=== PATIENT | female | born 1985 | race Caucasian/White ===

== ENCOUNTER 2019-07-16 11:32 | Emergency (ER) | payer MEDICAID, SELFPAY ==
[2019-07-16 11:40] VITALS: BP 174/98; PULSE 75; RESP 18; TEMP 36.8; O2SAT 100; BMI 53.1
--- NOTE | 2019-07-16 11:58 | ED_ITS ---
Entered by Ally Lopez, acting as scribe for Emmanuel Degroot DO HPI - Female Genitourinary General: Chief complaint: Vaginal Bleeding Stated complaint: problem Time Seen by Provider: 07/16/19 11:59 Source: patient and family Mode of arrival: ambulatory Limitations: no limitations History of Present Illness: HPI Narrative: 33 yo female presents with vaginal bleeding. pt states she started spotting the last few days but worsened today. pt states this is her 5th pregancy. pt reports she had several positive test at home including one that was just 3 days ago she reports it as having been sharply positive. Patient is L3 (this would include the current reported . MD elicited complaint: vaginal bleeding Location of symptoms: vaginal Severity: mild Quality of pain: cramping Consistency: progressively worsening Vaginal bleeding: moderate Exacerbating factors: none Relieving factors: none Associated symptoms: Reports no associated symptoms and abdominal pain (Left abdomen); Deny headache(s) or syncope Treatment prior to arrival: none Patient : Yes Possible : at home test positive Date of Last Menstrual Period: 06/06/19 Review of Systems General: Reports: 10 or more systems reviewed and unremarkable except in HPI and below Const: Denies: fever, chills, body aches, fatigue, malaise or night sweats Eyes: Denies: change in vision or blurry vision ENMT: Denies: throat pain, oral sores/lesions, dental pain, nasal discharge or nasal congestion Card: Denies: chest pain, palpitations, irregular heart rhythm, edema, syncope, shortness of breath on exertion, shortness of breath when lying down or leg pain with exertion Resp: Denies: shortness of breath, productive cough, non-productive cough or wheezing GI: Reports: abdominal pain (Left abdomen) : Reports: vaginal bleeding Musc: Denies: neck pain, back pain, extremity pain, extremity swelling, joint pain or joint swelling Skin/Breast: Denies: rash, itching or redness Neuro: Denies: headache, numbness in extremities, weakness in extremities, changes in sensation, lack of coordination, difficulty walking, frequent falls, dizziness, vertigo or confusion Psych: Denies: anxiety, depression, loss of interest, visual hallucinations, auditory hallucinations, suicidal ideation or homicidal ideation Endo: Denies: excessive urination, excessive thirst, tired all the time or cold intolerance Bello/Lymph: Denies: easy bruising, easy bleeding, petechiae, enlarged lymph nodes or tender lymph nodes PFSH ED PFSH: Social History Smoking and tobacco status: current every day smoker Female Reproductive History: Date of last menstrual period: 06/06/19 Physical Exam Const: COMMON NORMALS: average body habitus, oriented x3 and alert GENERAL APPEARANCE: cooperative, comfortable, well kempt and well developed NUTRITIONAL APPEARANCE: obese ORIENTATION/CONSCIOUSNESS: Yes awake, Yes oriented to person and Yes oriented to place HENMT: COMMON NORMALS: normocephalic, head/scalp atraumatic, external ears normal, EAC's normal, TM's normal bilaterally, external nose normal, moist oral mucous membranes and oropharynx normal HEAD & SCALP: normocephalic and atraumatic NOSE: external nose normal EXTERNAL EAR: Yes external ears normal EXTERNAL AUDITORY CANAL: EAC's normal TYMPANIC MEMBRANE: TM's normal bilaterally MOUTH: oral and palatal mucosa normal, lip normal and tongue normal THROAT: posterior oropharynx normal and tonsils normal Eye: COMMON NORMALS: PERRL, EOMs intact bilaterally, conjunctivae normal and no scleral icterus CONJUNCTIVA: Yes conjunctivae normal PUPIL: Yes PERRL Neck/C-Spine: COMMON NORMALS: full ROM, no lymphadenopathy, supple, no meningeal signs and thyroid normal THYROID: thyroid normal and asymmetrical Lymph: LYMPHATIC: no lymphadenopathy noted Resp: COMMON NORMALS: normal respiratory effort, no retractions, no use of accessory muscles and clear to auscultation bilaterally AUSCULTATION: clear to auscultation bilaterally Cardio: COMMON NORMALS: regular rate and regular rhythm RATE: regular rate RHYTHM: regular rhythm HEART SOUNDS: no murmurs GI: COMMON NORMALS: soft to palpation and no hepatosplenomegaly AUSCULTATION: Yes normoactive bowel sounds PALPATION: Yes soft, No tender, No guarding and Yes no hepatosplenomegaly : COMMON NORMALS: Yes no CVA tenderness BLADDER/KIDNEY EXAM: Yes no CVA tenderness OTHER: Patient placed in dorsolithotomy position speculum introduced cervix visualized small amount of blood from the cervical loss no evidence of any products of conception cultures done. Due to body habitus unable to perform bimanual exam ultrasound done see report in chart. Back/Pelvis: COMMON NORMALS: no CVA tenderness LUMBAR SPINE/LOWER BACK: Yes normal to inspection Extremity: COMMON NORMALS: no clubbing, cyanosis or edema, no calf tenderness and no pedal edema Neuro: COMMON NORMALS: oriented x3 SENSORIUM/ORIENTATION: Yes alert, Yes oriented to person and Yes oriented to place MENINGEAL SIGNS: Yes no meningeal signs Psych: APPEARANCE: Yes well kempt Skin: COMMON NORMALS: no rashes or lesions noted and skin turgor normal GENERAL SKIN EXAM: no rashes or lesions noted and turgor normal Course ED course: Serum quantitative beta-hCG is 0. There is no identifiable on ultrasound discussed this with the patient. Follow-up with primary care doctor at this point suspect she just had a blighted ovum or possibly a anovulatory cycle. Vital Signs: Vital signs: Vital Signs Temperature 98.3 F 07/16/19 11:40 Pulse Rate 71 07/16/19 14:28 Respiratory Rate 16 07/16/19 14:28 Blood Pressure 153/104 07/16/19 14:28 Pulse Oximetry 97 07/16/19 14:28 MDM - Female Lab Data: Labs: Lab Results 07/16/19 07/16/19 07/16/19 Range/Units 12:05 12:37 12:37 WBC 6.0 (4.0-10.0) 10^3/ uL RBC 4.53 (4.1-5.3) 10^6/u L Hgb 13.5 (11.5-15.3) g/dL Hct 40.1 (37.0-47.0) % MCV 88.5 (81-99) fL MCH 29.8 (28.0-34.0) pg MCHC 33.7 (30.0-36.0) g/dL RDW 12.2 (12.1-15.1) % Plt Count 280 (130-400) 10^3/c mm MPV 11.0 H (7.4-10.4) fL Neut % (Auto) 55.5 % Lymph % (Auto) 32.8 % [place] % (Auto) 5.9 % Eos % (Auto) 4.9 % Baso % (Auto) 0.7 % Neut # (Auto) 3.3 (1.8-7.7) 10^3/u L Lymph # (Auto) 2.0 (0.8-4.8) 10^3/u L [place] # (Auto) 0.4 (0.2-0.9) 10^3/u L Eos # (Auto) 0.3 (0.0-0.8) 10^3/u L Baso # (Auto) 0.0 (0.0-0.1) 10^3/u L Nucleated RBC % (a uto) 0 % Nucleated RBCs # 0.0 /100WBC Sodium 137 (136-145) mmol/L Potassium 4.1 (3.5-5.1) mmol/L Chloride 98 (98-107) mmol/L Carbon Dioxide 26 (22-29) mmol/L Anion Gap 17.1 (5-19) BUN 7 (6-20) mg/dL Creatinine 0.5 (0.5-0.9) mg/dL GFR Calculation 143.9 H (90-130) mL/min Glucose 153 H (65-115) mg/dL Calculated Osmolal ity 283 L (285-295) mOsm/k g Calcium 10.0 (8.5-10.5) mg/dL HCG, Qual Negative (Negative) Urine Color (Yellow) Urine Appearance (CLEAR) Urine pH (5-7) Ur Specific [place] y (1.005-1.030) Urine Protein (Negative) Urine Glucose (UA) (Normal) Urine Ketones (Negative) Urine Occult Blood (Negative) Urine Nitrate (Negative) Urine Bilirubin (NEGATIVE) Urine Urobilinogen (Negative) mg/dL Ur Leukocyte Patty ase (Negative) Urine RBC (0-2) /hpf Urine WBC (0-5) /hpf Ur Squamous Epith Cells (0-5) Urine Bacteria (NONE) Urine Mucus Blood Type 07/16/19 07/16/19 Range/Units 12:41 13:23 WBC (4.0-10.0) 10^3/ uL RBC (4.1-5.3) 10^6/u L Hgb (11.5-15.3) g/dL Hct (37.0-47.0) % MCV (81-99) fL MCH (28.0-34.0) pg MCHC (30.0-36.0) g/dL RDW (12.1-15.1) % Plt Count (130-400) 10^3/c mm MPV (7.4-10.4) fL Neut % (Auto) % Lymph % (Auto) % [place] % (Auto) % Eos % (Auto) % Baso % (Auto) % Neut # (Auto) (1.8-7.7) 10^3/u L Lymph # (Auto) (0.8-4.8) 10^3/u L [place] # (Auto) (0.2-0.9) 10^3/u L Eos # (Auto) (0.0-0.8) 10^3/u L Baso # (Auto) (0.0-0.1) 10^3/u L Nucleated RBC % (a uto) % Nucleated RBCs # /100WBC Sodium (136-145) mmol/L Potassium (3.5-5.1) mmol/L Chloride (98-107) mmol/L Carbon Dioxide (22-29) mmol/L Anion Gap (5-19) BUN (6-20) mg/dL Creatinine (0.5-0.9) mg/dL GFR Calculation (90-130) mL/min Glucose (65-115) mg/dL Calculated Osmolal ity (285-295) mOsm/k g Calcium (8.5-10.5) mg/dL HCG, Qual (Negative) Urine Color Yellow (Yellow) Urine Appearance Clear (CLEAR) Urine pH 6.5 (5-7) Ur Specific Gravit y 1.020 (1.005-1.030) Urine Protein Neg (Negative) Urine Glucose (UA) Norm (Normal) Urine Ketones Negative (Negative) Urine Occult Blood 2+ H (Negative) Urine Nitrate Negative (Negative) Urine Bilirubin Neg (NEGATIVE) Urine Urobilinogen Norm (Negative) mg/dL Ur Leukocyte Patty ase Negative (Negative) Urine RBC 0-4 H (0-2) /hpf Urine WBC Rare (0-5) /hpf Ur Squamous Epith Cells 5-10 H (0-5) Urine Bacteria Trace (NONE) Urine Mucus 1+ Blood Type O Positive Discharge Plan Discharge Patient Disposition: Home, Self-Care Clinical Impression: Menometrorrhagia Condition: Stable Prescriptions: No Action Tylenol 325 mg Tablet 650 mg PO PRN RF: 0 Discharge Diet: Usual diet Discharge Activity: Resume usual activity Activity Restrictions/Additional Instructions: Follow-up with your primary care doctor as needed Discharge Date/Time: 07/16/19 14:28 Coding Level of Care Code ED Print Developer for Chg Fwd Exam Comprehensive The documentation recorded by the John mendoza Bridget Annette, accurately reflects the service I personally performed and the decisions made by Zane paige Curtis L, DO Jul 16, 2019 11:32
--- NOTE | 2019-07-16 12:09 | PC.NURSE ---
Patient states she has been spotting, bright pink blood for the past few days. She has had a positive home test but has not seen an OB yet. She does not have any c/o cramping but states she does have some LLQ pain, intermittently, described as shooting pain. SPotting only occurs when wiping after urination, but has begun to occur everytime she goes now.
--- NOTE | 2019-07-16 12:21 | US_ITS ---
WS: [id number] ULTRASOUND TRANSABDOMINAL AND TRANSVAGINAL HISTORY: aginal bleeding : 5 PARA: 4 COMPARISON: None available. FINDINGS: Cervical length is cm; closed. Placenta grade 0, anterior cardiac tones 0 BPM. A markedly thickened endometrium is noted measures 1.6 cm. A definite gestational sac is not seen. A nabothian cyst in the cervix is noted Estimated gestational age 5 weeks gestation Estimated weight g. US/US OB >=14 wk fetus w transvag IMPRESSION: A definite intrauterine is not noted. A markedly thickened endometrium is seen. We recommend follow-up evaluation with scanning of one week of is mercer spected.
[2019-07-16 12:35] LABS: HCG Qualitative Urine. Negative (Negative)
[2019-07-16 12:51] LABS: Basophils % 0.7 %; Eosinophils # 0.3 10^3/uL (0.0-0.8); Eosinophils % 4.9 %; Hematocrit 40.1 % (37.0-47.0); Hemoglobin 13.5 g/dL (11.5-15.3); Lymphocytes % 32.8 %; Mean Corpuscular HGB Conc 33.7 g/dL (30.0-36.0); Mean Corpuscular Hemoglobin 29.8 pg (28.0-34.0); Mean Corpuscular Volume 88.5 fL (81-99); Monocytes # 0.4 10^3/uL (0.2-0.9); Monocytes % 5.9 %; Neutrophils # 3.3 10^3/uL (1.8-7.7); Neutrophils % 55.5 %; Nucleated Red Blood Cells % 0 %; Platelet Count 280 10^3/cmm (130-400); Red Blood Count 4.53 10^6/uL (4.1-5.3); Red Cell Distribution Width 12.2 % (12.1-15.1)
[2019-07-16 13:04] LABS: Anion Gap 17.1 (5-19); Blood Urea Nitrogen 7 mg/dL (6-20); Carbon Dioxide 26 mmol/L (22-29); Chloride 98 mmol/L (98-107); Glomerular Filtration Rate 143.9 mL/min (90-130); Glucose 153 mg/dL (65-115); Osmolality Calculated 283 mOsm/kg (285-295); Potassium 4.1 mmol/L (3.5-5.1); Sodium 137 mmol/L (136-145)
[2019-07-16 13:37] LABS: Add Urine Microscopic? YES; Bilirubin Urine Neg (NEGATIVE); Blood Urine 2+ (Negative); Glucose Urine UA Norm (Normal); Ketones Urine Negative (Negative); Leukocyte Esterase Urine Negative (Negative); Nitrate Urine Negative (Negative); Protein Urine Neg (Negative); Urine Appearance Clear (CLEAR); Urine Color Yellow (Yellow); Urobilinogen Urine Norm (Negative); pH Urine 6.5 (5-7)
[2019-07-16 13:42] LABS: Bacteria Urine TRACE; Mucus Urine 1+; RBC Urine 0-4 /hpf (0-2); WBC Urine RARE /hpf (0-5)
[2019-07-16 13:43] LABS: Add Urine Culture? No
[2019-07-16 13:55] VITALS: BP 153/87; PULSE 71; O2SAT 98
[2019-07-16 14:28] VITALS: BP 153/104; PULSE 71; RESP 16; O2SAT 97
== END 2019-07-16 14:28 | disposition home or self-care (01) ==
PROVIDERS: Emergency Provider Family Medicine
DX: N92.1 Excessive and frequent menstruation with irregular cycle (principal); F17.200 Nicotine dependence, unspecified, uncomplicated
CPT/HCPCS: 51701; 76805; 76817; 80048; 81001; 81025; 85025; 86900; 87210; 87491; 87591; 87661; 99283; A9270

== ENCOUNTER → 2019-12-06 13:40 | Outpatient (BNVA) | payer MEDICAID, SELFPAY | PROVIDERS: Visit Provider Nurse Practitioner Women's Health | DX: O20.9 Hemorrhage in early pregnancy, unspecified (principal); O26.891 Other specified pregnancy related conditions, first trimester; E06.3 Autoimmune thyroiditis; O99.331 Smoking (tobacco) complicating pregnancy, first trimester; F17.200 Nicotine dependence, unspecified, uncomplicated; Z3A.01 Less than 8 weeks gestation of pregnancy; Z86.32 Personal history of gestational diabetes; Z87.59 Personal history of other complications of pregnancy, childbirth and the puerperium | CPT/HCPCS: 81000; 84443; 84702 ==

== ENCOUNTER → 2019-12-08 15:40 | Outpatient (BNVA) | payer MEDICAID, SELFPAY | PROVIDERS: Visit Provider Obstetrics & Gynecology | DX: O34.219 Maternal care for unspecified type scar from previous cesarean delivery (principal); O34.81 Maternal care for other abnormalities of pelvic organs, first trimester; O26.891 Other specified pregnancy related conditions, first trimester; N83.201 Unspecified ovarian cyst, right side; N84.0 Polyp of corpus uteri; Z3A.01 Less than 8 weeks gestation of pregnancy | CPT/HCPCS: 76817 ==

== ENCOUNTER → 2020-01-13 13:51 | Outpatient (BNVA) | payer MEDICAID, SELFPAY | PROVIDERS: Visit Provider Obstetrics & Gynecology | DX: O99.281 Endocrine, nutritional and metabolic diseases complicating pregnancy, first trimester (principal); O99.331 Smoking (tobacco) complicating pregnancy, first trimester; E06.3 Autoimmune thyroiditis | CPT/HCPCS: 80053; 80307; 82950; 84315; 85027; 86592; 86762; 86803; 86850; 86900; 87340; 87491; 87591 ==

== ENCOUNTER → 2020-01-16 10:57 | Outpatient (BNVA) | payer MEDICAID, SELFPAY | PROVIDERS: Visit Provider Obstetrics & Gynecology | DX: Z34.91 Encounter for supervision of normal pregnancy, unspecified, first trimester (principal); Z3A.12 12 weeks gestation of pregnancy | CPT/HCPCS: 76801 ==

== ENCOUNTER → 2020-01-23 13:58 | Outpatient (BNVA) | payer MEDICAID, SELFPAY | PROVIDERS: Referring Provider Obstetrics & Gynecology; Visit Provider Internal Medicine | DX: O99.282 Endocrine, nutritional and metabolic diseases complicating pregnancy, second trimester (principal); E03.9 Hypothyroidism, unspecified; E04.1 Nontoxic single thyroid nodule; O99.212 Obesity complicating pregnancy, second trimester; E66.9 Obesity, unspecified; Z3A.13 13 weeks gestation of pregnancy | CPT/HCPCS: 99204 ==

== ENCOUNTER → 2020-02-10 08:32 | Outpatient (BNVA) | payer SELFPAY | PROVIDERS: Visit Provider Obstetrics & Gynecology | DX: O99.89 Other specified diseases and conditions complicating pregnancy, childbirth and the puerperium (principal); Z3A.00 Weeks of gestation of pregnancy not specified | CPT/HCPCS: 81000 ==

== ENCOUNTER → 2020-02-14 08:12 | Outpatient (BNVA) | payer MEDICAID, SELFPAY | PROVIDERS: Visit Provider Obstetrics & Gynecology | DX: R73.09 Other abnormal glucose (principal) | CPT/HCPCS: 82951; 82952 ==

== ENCOUNTER → 2020-02-17 08:23 | Outpatient (BNVA) | payer MEDICAID, SELFPAY | PROVIDERS: Visit Provider Obstetrics & Gynecology | DX: Z34.90 Encounter for supervision of normal pregnancy, unspecified, unspecified trimester (principal) | CPT/HCPCS: 81000 ==

== ENCOUNTER → 2020-02-23 12:54 | Outpatient (BNVA) | payer MEDICAID, SELFPAY | PROVIDERS: Visit Provider Nurse Practitioner Family | DX: Z11.59 Encounter for screening for other viral diseases (principal) | CPT/HCPCS: 87635 ==

== ENCOUNTER → 2020-03-08 10:20 | Outpatient (BNVA) | payer MEDICAID, SELFPAY | PROVIDERS: Visit Provider Obstetrics & Gynecology | DX: Z34.92 Encounter for supervision of normal pregnancy, unspecified, second trimester (principal); Z3A.20 20 weeks gestation of pregnancy | CPT/HCPCS: 76805 ==

== ENCOUNTER 2020-03-15 16:20 | Outpatient (CLI) | payer MEDICAID, SELFPAY ==
[2020-03-15 17:39] LABS: Thyroid Stimulating Hormone 7.92 uIU/mL (0.27-4.20)
[2020-03-16 07:48] LABS: T4 Total 13.1 mcg/dL (5.1-11.9)
== END 2020-03-15 16:21 | disposition home or self-care (01) ==
PROVIDERS: Visit Provider Internal Medicine
DX: O99.282 Endocrine, nutritional and metabolic diseases complicating pregnancy, second trimester (principal); E03.9 Hypothyroidism, unspecified
CPT/HCPCS: 36415; 84436; 84443

== ENCOUNTER → 2020-03-16 07:59 | Outpatient (BNVA) | payer MEDICAID, SELFPAY | PROVIDERS: Visit Provider Internal Medicine | DX: O99.282 Endocrine, nutritional and metabolic diseases complicating pregnancy, second trimester (principal); E03.9 Hypothyroidism, unspecified | CPT/HCPCS: 81000; 99213 ==

== ENCOUNTER → 2020-04-10 09:43 | Outpatient (BNVA) | payer MEDICAID, SELFPAY | PROVIDERS: Visit Provider Obstetrics & Gynecology | DX: O09.899 Supervision of other high risk pregnancies, unspecified trimester (principal); Z3A.00 Weeks of gestation of pregnancy not specified | CPT/HCPCS: 81000 ==

== ENCOUNTER → 2020-05-04 09:40 | Outpatient (BNVA) | payer MEDICAID, SELFPAY | PROVIDERS: Visit Provider Obstetrics & Gynecology | DX: O09.893 Supervision of other high risk pregnancies, third trimester (principal); O99.283 Endocrine, nutritional and metabolic diseases complicating pregnancy, third trimester; E03.9 Hypothyroidism, unspecified; E06.3 Autoimmune thyroiditis; O99.333 Smoking (tobacco) complicating pregnancy, third trimester; F17.210 Nicotine dependence, cigarettes, uncomplicated; O24.913 Unspecified diabetes mellitus in pregnancy, third trimester; Z3A.28 28 weeks gestation of pregnancy | CPT/HCPCS: 81000; 85027 ==

== ENCOUNTER → 2020-05-18 14:46 | Outpatient (BNVA) | payer MEDICAID, SELFPAY | PROVIDERS: Visit Provider Obstetrics & Gynecology | DX: O09.899 Supervision of other high risk pregnancies, unspecified trimester (principal); O99.332 Smoking (tobacco) complicating pregnancy, second trimester; O99.283 Endocrine, nutritional and metabolic diseases complicating pregnancy, third trimester; E06.3 Autoimmune thyroiditis; E03.9 Hypothyroidism, unspecified; O24.913 Unspecified diabetes mellitus in pregnancy, third trimester; Z3A.00 Weeks of gestation of pregnancy not specified | CPT/HCPCS: 81000 ==

== ENCOUNTER 2020-06-04 14:33 | Outpatient (CLI) | payer MEDICAID, SELFPAY ==
--- NOTE | 2020-06-04 14:43 | US_ITS ---
WS: [id number] BIOPHYSICAL PROFILE HISTORY: O24.913 - Unspecified diabetes mellitus in , third trimester COMPARISON: 03/08/2020 Cardiac activity: 141 bpm. Cervix: Not visualized. Placenta: Posterior. Placenta grade: 1 Parameters are as follows: Breathin Movement: 2 Tone: 2 Fluid volume: 2 Largest vertical pocket of amniotic fluid 4.8 cm. US/US OB BPP wo NST [id number] IMPRESSION: 1. Biophysical profile score: /8. 2. Normal amniotic fluid.
== END 2020-06-04 14:34 | disposition home or self-care (01) ==
LOC: RAD 14:39
PROVIDERS: Visit Provider Obstetrics & Gynecology
DX: O24.913 Unspecified diabetes mellitus in pregnancy, third trimester (principal)
CPT/HCPCS: 76819

== ENCOUNTER → 2020-06-11 13:41 | Outpatient (BNVA) | payer BC, MEDICAID, SELFPAY | PROVIDERS: Visit Provider Obstetrics & Gynecology | DX: O24.913 Unspecified diabetes mellitus in pregnancy, third trimester (principal); O99.283 Endocrine, nutritional and metabolic diseases complicating pregnancy, third trimester; E03.9 Hypothyroidism, unspecified; Z3A.00 Weeks of gestation of pregnancy not specified | CPT/HCPCS: 81000 ==

== ENCOUNTER → 2020-06-18 14:27 | Outpatient (BNVA) | payer BC, MEDICAID, SELFPAY | PROVIDERS: Visit Provider Obstetrics & Gynecology | DX: O24.913 Unspecified diabetes mellitus in pregnancy, third trimester (principal); O99.283 Endocrine, nutritional and metabolic diseases complicating pregnancy, third trimester; E03.9 Hypothyroidism, unspecified; E06.3 Autoimmune thyroiditis; O99.330 Smoking (tobacco) complicating pregnancy, unspecified trimester; F17.200 Nicotine dependence, unspecified, uncomplicated; Z3A.00 Weeks of gestation of pregnancy not specified | CPT/HCPCS: 81000 ==

== ENCOUNTER 2020-06-23 21:10 | Outpatient (CLI) | payer BC, MEDICAID, SELFPAY ==
[2020-06-23 21:21] VITALS: TEMP 36.3
[2020-06-23 21:25] VITALS: BP 129/73; PULSE 81
[2020-06-23 21:42] VITALS: BMI 66.9
[2020-06-23 21:45] VITALS: BP 129/73; PULSE 81; RESP 18; TEMP 36.3
--- NOTE | 2020-06-23 21:46 | PC.NURSE ---
Patient reports positive movements, and this RN able to palpate movement.
[2020-06-23 21:52] VITALS: RESP 18
--- NOTE | 2020-06-23 23:00 | PM.ACPR ---
Procedure/Consent Procedure Narrative: NONSTRESS TEST: Place of test: [facility] [place] Indication: 34-year-old 5 para 4-0-0-4 at 35 weeks and 2 days gestation, decreased movement, diabetic, hypothyroidism Date and time of test: 06/23/2020, 9:30 PM Baseline: 120 Variability: Moderate variability Accelerations: Accelerations present Decelerations: No decelerations Tocometry: Irritability-no contractions INTERPRETATION: NST reactive, kick counts discussed, reassuring status, continue kick counts
== END 2020-06-23 21:57 | disposition home or self-care (01) ==
LOC: OPOB 21:11 → OBGYN 21:12
PROVIDERS: Visit Provider Obstetrics & Gynecology
DX: O36.8190 Decreased fetal movements, unspecified trimester, not applicable or unspecified (principal); Z3A.00 Weeks of gestation of pregnancy not specified; O24.419 Gestational diabetes mellitus in pregnancy, unspecified control; E03.9 Hypothyroidism, unspecified
CPT/HCPCS: 12345; 59025; 99211

== ENCOUNTER → 2020-06-26 10:50 | Outpatient (BNVA) | payer BC, MEDICAID, SELFPAY | PROVIDERS: Visit Provider Obstetrics & Gynecology | DX: Z34.90 Encounter for supervision of normal pregnancy, unspecified, unspecified trimester (principal) | CPT/HCPCS: 81000; 87081 ==

== ENCOUNTER → 2020-07-02 12:39 | Outpatient (BNVA) | payer BC, MEDICAID, SELFPAY | PROVIDERS: Visit Provider Obstetrics & Gynecology | DX: O09.899 Supervision of other high risk pregnancies, unspecified trimester (principal); Z20.822 Contact with and (suspected) exposure to COVID-19 | CPT/HCPCS: 81000; 87635 ==

== ENCOUNTER 2020-07-05 12:55 | Inpatient (IN) | payer BC, MEDICAID, SELFPAY ==
[2020-07-05] VITALS (25 sets, daily range): BP systolic 127–211; BP diastolic 58–106; PULSE 67–221; RESP 18; TEMP 35.9–36.2; O2SAT 81–97; BMI 67.8
--- NOTE | 2020-07-05 14:09 | US_ITS ---
WS: [id number] BIOPHYSICAL PROFILE HISTORY: induction, GDM COMPARISON: 06/25/2020 Cardiac activity: 141 bpm. Cervix: Not visualized. Placenta: Fundal and anterior. Placenta wraps to the LEFT. Placenta grade: 2 Parameters are as follows: Breathin Movement: 2 Tone: 2 Fluid volume: 2 Largest vertical pocket of amniotic fluid is 9.6 cm. US/US OB BPP wo NST [id number] IMPRESSION: 1. Biophysical profile score: 8/8. 2. Largest vertical pocket of amniotic fluid 9.6 cm.
[2020-07-05 14:47] LABS: Basophils % 0.4 %; Eosinophils # 0.1 10^3/uL (0.0-0.8); Eosinophils % 1.3 %; Hematocrit 35.1 % (37.0-47.0); Hemoglobin 11.5 g/dL (11.5-15.3); Lymphocytes # 1.6 10^3/uL (0.8-4.8); Mean Corpuscular HGB Conc 32.8 g/dL (30.0-36.0); Mean Corpuscular Hemoglobin 28.7 pg (28.0-34.0); Mean Corpuscular Volume 87.5 fL (81-99); Mean Platelet Volume 12.1 fL (7.4-10.4); Monocytes # 0.4 10^3/uL (0.2-0.9); Monocytes % 4.4 %; Neutrophils # 6.02 10^3/uL (1.8-7.7); Neutrophils % 73.7 %; Nucleated Red Blood Cells % 0 %; Platelet Count 278 10^3/cmm (130-400); Red Blood Count 4.01 10^6/uL (4.1-5.3); Red Cell Distribution Width 13.3 % (12.1-15.1); White Blood Count 8.2 10^3/uL (4.0-10.0)
[2020-07-05] MEDS: miSOPROStol 100 mcg tablet 25 MCG VAGINAL (15:00)
[2020-07-05 16:02] LABS: Glucose Point of Care 102 mg/dL (70-110)
[2020-07-05 17:42] LABS: Add Urine Microscopic? YES; Bacteria Urine TRACE /hpf; Bilirubin Urine Neg (Negative); Blood Urine 2+ (Negative); Glucose Urine UA Norm (Normal); Ketones Urine 1+ (Negative); Leukocyte Esterase Urine Negative (Negative); Mucus Urine 1+ /hpf; Nitrate Urine Negative (Negative); Protein Urine Neg (Negative); Urine Appearance Clear (CLEAR); Urine Color Yellow (Yellow); Urobilinogen Urine 4 mg/dL (Negative); pH Urine 5 (5-7)
--- NOTE | 2020-07-05 18:04 | SUR.OPER ---
pt checked own blood glucose with own meter, Blood glucose 104, per pt meter.
[2020-07-05 18:34] LABS: Alanine Aminotransferase 17 U/L (0-33); Albumin Level 3.5 g/dL (3.5-5.2); Alkaline Phosphatase 144 IU/L (35-105); Anion Gap 18.2 (5-19); Aspartate Amino Transferase 21 U/L (0-32); Blood Urea Nitrogen 6 mg/dL (6-20); Calcium 9.2 mg/dL (8.5-10.5); Carbon Dioxide 20 mmol/L (22-29); Chloride 102 mmol/L (98-107); Globulin 3.9 g/dL (1.3-4.6); Glucose 94 mg/dL (65-115); Osmolality Calculated 279 mOsm/kg (285-295); Potassium 4.2 mmol/L (3.5-5.1); Sodium 136 mmol/L (136-145); Total Bilirubin 0.3 mg/dL (0.15-1.2); Total Protein 7.4 g/dL (6.6-8.7)
[2020-07-05 18:35] LABS: Uric Acid 5.7 mg/dL (2.4-5.7)
[2020-07-05] MEDS: sodium chloride 0.9% 1,000 ML 125 ML IV (20:51)
--- NOTE | 2020-07-05 20:56 | PC.NURSE ---
Bedside blood glucose per patients own meter 112 at 2003. RN observed reading.
[2020-07-05] MEDS: oxytocin 30 UNIT/500 ML BAG IV (21:15)
[2020-07-05 21:49] LABS: Urine Creatinine 221 mg/dL (28-217)
[2020-07-05 21:51] LABS: UPRO/UCREAT Ratio 0.22 mg/mg CR; Urine Protein Random 48 mg/dL
[2020-07-06] VITALS (137 sets, daily range): BP systolic 104–194; BP diastolic 56–90; PULSE 65–203; RESP 16–18; TEMP 35.9–37; O2SAT 90–100
[2020-07-06] MEDS: alum-mag-hydroxide-sime 30 mL UDC PO (00:20)
--- NOTE | 2020-07-06 00:22 | PC.NURSE ---
RN at bedside, patient performed bedside blood glucose with a reading of 98. RN observed.
--- NOTE | 2020-07-06 04:32 | PC.NURSE ---
Patient performed bedside glucose with own meter, reading of 109. RN observed.
[2020-07-06] MEDS: sodium chloride 0.9% 1,000 ML 125 ML IV ×2 (04:43→16:53)
--- NOTE | 2020-07-06 08:19 | PC.NURSE ---
pt checked blood sugar with home device, reading 92
--- NOTE | 2020-07-06 10:01 | PC.NURSE ---
Pt checked own blood sugar, reading 89
[2020-07-06] MEDS: sodium chloride 0.9% 1,000 ML 999 ML IV ×2 (10:18→11:23)
--- NOTE | 2020-07-06 11:13 | ANES.PREANE2 ---
Pre-Anesthetic Assessment Pre-Anesthetic Assessment: Height/Weight: Height 1.6 m Weight 173.726 kg Temp Pulse Resp BP Pulse Ox 97.7 F 73 17 150/75 97 07/06/20 08:51 07/06/20 10:44 07/06/20 10:25 07/06/20 10:44 07/06/20 06:23 Preop Diagnosis: labor pains Proposed Procedure: epidural Was Beta Fatou taken within 24 hours: N/A Social: Social History: No alcohol and No tobacco Exam: Pre-Anes Outpt Exam: alert, oriented x 3, clear to auscultation bilaterally and regular rate & rhythm Airway: Submandibular: WNL Cervical ROM: WNL MP: 3 Dentition: Full Pulmonary: Pulmonary: None reported CV/HEM: CV/HEM: None reported : : None reported Hepatic: Hepatic: None reported GI: GI: None reported Metabolic: Metabolic: DM and Thyroid (Kwame's) Musc/skel: Musc/skel: None reported Neuropsych: Neuropsych: None reported Anesthetic Plan: ASA status: 3 Anesthesia: Eval. for regional block and Regional (specify below) Risk of > 500 ml blood loss (7ml/kg in children): No Meds/Allergies Current Medications: Current Medications Generic Name Dose Route Start Last Admin Trade Name Freq PRN Reason Stop Dose Admin Al Hydrox/Mg [place] x/Simethicone 30 ml 07/05/20 14:05 07/06/20 00:20 [id number]-[id number]-Tqkduvi de-Jaime 30 Ml Udc PO 30 ml Q4H PRN Administration INDIGESTION Ropivacaine 200 mg in 100 mls @ 13 mls/hr 07/05/20 14:30 07/06/20 06:41 Naropin Premix EPIDURAL Not Given .[id number] JOE Sodium Chloride 1,000 mls @ 125 m ls/hr 07/05/20 18:30 07/06/20 10:18 Sodium Chloride 0.9% IV 999 mls/hr .Q8H JOE Administration Oxytocin 30 unit in 500 ml s @ 1 mls/hr 07/05/20 19:56 07/06/20 10:27 Pitocin IV 10 milliunit/min .Q24H PRN 10 mls/hr LABOR INDUCTION Titration Protocol 1 MILLIUNIT/MIN Non-Formulary 1 each 07/06/20 06:00 07/06/20 06:19 Medication ( PO 1 each Levothyroxine 100 QAM JOE Administration Mcg) Non-Formulary 0 each 07/05/20 19:00 07/06/20 08:09 Medication (Insuli n SUBCUT 10 each Glargine 100 Units /1 0900,1900 JOE Administration Ml) PFSH Anesthesia PFSH: Medical History Hypothyroidism affecting in first trimester Surgical History History of cholecystectomy (~2009) History of tonsillectomy (~2008) Family History Father Diabetes Family history of thyroid problem Denies family history of Colon cancer Ovarian cancer Heart disease Hyperlipidemia Breast cancer Hypertension Uterine cancer Stroke Social History Additional social history: - Tobacco use: former smoker, last smoked before 2019 Alcohol use: Social before Drug use: Marijuana; last use 2017 Female Reproductive History: Date of last menstrual period: 06/06/19 : 5 Data Anesthesia CBC & Chem 7: 07/05/20 14:24 07/05/20 17:01 Other Labs: Laboratory Results - last 48 hr 07/05/20 07/05/20 07/05/20 14:24 15:51 17:01 WBC 8.2 RBC 4.01 L Hgb 11.5 Hct 35.1 L MCV 87.5 MCH 28.7 MCHC 32.8 RDW 13.3 Plt Count 278 MPV 12.1 H Neut % (Auto) 73.7 Lymph % (Auto) 20.0 [place] % (Auto) 4.4 Eos % (Auto) 1.3 Baso % (Auto) 0.4 Neut # (Auto) 6.02 Lymph # (Auto) 1.6 [place] # (Auto) 0.4 Eos # (Auto) 0.1 Baso # (Auto) 0.0 Nucleated RBC % (auto) 0 Nucleated RBCs # 0.0 Sodium 136 Potassium 4.2 Chloride 102 Carbon Dioxide 20 L Anion Gap 18.2 BUN 6 Creatinine 0.4 L GFR Calculation 185.0 H Glucose 94 POC Glucose 102 Calculated Osmolality 279 L Uric Acid Calcium 9.2 Total Bilirubin 0.3 AST 21 ALT 17 Alkaline Phosphatase 144 H Total Protein 7.4 Albumin 3.5 Globulin 3.9 Urine Color Urine Appearance Urine pH Ur Specific [place] Urine Protein Urine Glucose (UA) Urine Ketones Urine Blood Urine Nitrate Urine Bilirubin Urine Urobilinogen Ur Leukocyte Esterase Urine RBC Urine WBC Ur Squamous Epith Cells Amorphous Sediment Urine Bacteria Urine Mucus U Random Total Protein Urine Creatinine Protein/Creatinin Ratio 07/05/20 07/05/20 07/05/20 17:01 17:23 17:23 WBC RBC Hgb Hct MCV MCH MCHC RDW Plt Count MPV Neut % (Auto) Lymph % (Auto) [place] % (Auto) Eos % (Auto) Baso % (Auto) Neut # (Auto) Lymph # (Auto) [place] # (Auto) Eos # (Auto) Baso # (Auto) Nucleated RBC % (auto) Nucleated RBCs # Sodium Potassium Chloride Carbon Dioxide Anion Gap BUN Creatinine GFR Calculation Glucose POC Glucose Calculated Osmolality Uric Acid 5.7 Calcium Total Bilirubin AST ALT Alkaline Phosphatase Total Protein Albumin Globulin Urine Color Yellow Urine Appearance Clear Urine pH 5 Ur Specific [place] 1.020 Urine Protein Neg Urine Glucose (UA) Norm Urine Ketones 1+ H Urine Blood 2+ H Urine Nitrate Negative Urine Bilirubin Neg Urine Urobilinogen 4 H Ur Leukocyte Esterase Negative Urine RBC 5-10 H Urine WBC 5-10 H Ur Squamous Epith Cells 10-15 H Amorphous Sediment Not Reportable Urine Bacteria Trace Urine Mucus 1+ U Random Total Protein 48 Urine Creatinine 221 H Protein/Creatinin Ratio 0.22 Cardiac Studies: No Data to Display
--- NOTE | 2020-07-06 11:45 | P.ANES_ITS ---
Anesthesia Procedures Procedure/Date: 07/06/20 epidural Procedure Narrative: epidural complete, bolus given, epidural pump initiated with ADULT EDUCATION MANAGER education given, vitals taken during procedure using OBIX system and satisfactory throughout, patient admits to decrease pain, report of procedure to OB RN Epidural: Time Out Performed: Yes Consents Signed: Procedure Consent Consent: requested by attending/covering physician, from patient, risks and benefits reviewed and patient agrees to proceed Lumbar Level: L3-L4 Epidural position: sitting Epidural procedure: sterile prep of area, 1% lidocaine to numb the area (3 mL), 18 g needle, negative for paresthesia passed, neg for paresthesia, test dose given, 1.5% xylocaine 1:200k epi (5 mL), 0.2% Ropivacaine bolus ml (5 mL), placed PCEA, no systemic response, sterile dressing applied, L.U.D. no apparent complications and 0.2% Ropiavacaine @ mls/hr (13 mL/hr)
--- NOTE | 2020-07-06 12:03 | PC.NURSE ---
pt checked blood sugar, reading 86
[2020-07-06 15:19] LABS: Basophils % 0.2 %; Eosinophils # 0.1 10^3/uL (0.0-0.8); Eosinophils % 0.8 %; Hemoglobin 11.7 g/dL (11.5-15.3); Lymphocytes # 1.6 10^3/uL (0.8-4.8); Lymphocytes % 17.2 %; Mean Corpuscular HGB Conc 32.5 g/dL (30.0-36.0); Mean Corpuscular Hemoglobin 28.9 pg (28.0-34.0); Mean Corpuscular Volume 88.9 fL (81-99); Mean Platelet Volume 12.2 fL (7.4-10.4); Monocytes # 0.4 10^3/uL (0.2-0.9); Monocytes % 4.7 %; Neutrophils # 7.03 10^3/uL (1.8-7.7); Neutrophils % 76.8 %; Nucleated Red Blood Cells % 0 %; Platelet Count 241 10^3/cmm (130-400); Red Blood Count 4.05 10^6/uL (4.1-5.3); Red Cell Distribution Width 13.5 % (12.1-15.1); White Blood Count 9.2 10^3/uL (4.0-10.0)
[2020-07-06 15:37] LABS: Alanine Aminotransferase 16 U/L (0-33); Albumin Level 3.1 g/dL (3.5-5.2); Alkaline Phosphatase 138 IU/L (35-105); Aspartate Amino Transferase 23 U/L (0-32); Blood Urea Nitrogen 6 mg/dL (6-20); Calcium 9.1 mg/dL (8.5-10.5); Carbon Dioxide 21 mmol/L (22-29); Chloride 103 mmol/L (98-107); Globulin 3.8 g/dL (1.3-4.6); Glucose 82 mg/dL (65-115); Osmolality Calculated 275 mOsm/kg (285-295); Sodium 134 mmol/L (136-145); Total Bilirubin 0.4 mg/dL (0.15-1.2); Total Protein 6.9 g/dL (6.6-8.7); Uric Acid 6.5 mg/dL (2.4-5.7)
[2020-07-06 15:38] LABS: UPRO/UCREAT Ratio 0.23 mg/mg CR; Urine Creatinine 141 mg/dL (28-217); Urine Protein Random 33 mg/dL
--- NOTE | 2020-07-06 16:08 | PC.NURSE ---
pt checked blood sugar, reading 88
--- NOTE | 2020-07-06 18:03 | PC.NURSE ---
pt checked her blood sugar, reading 91
--- NOTE | 2020-07-06 21:53 | PC.NURSE ---
pt checked her blood sugar, reading 90
[2020-07-07] VITALS (99 sets, daily range): BP systolic 98–196; BP diastolic 51–98; PULSE 64–89; RESP 16–20; TEMP 35.7–36.9; O2SAT 84–99
[2020-07-07 00:41] LABS: Glucose Point of Care 100 mg/dL (70-110)
[2020-07-07] MEDS: sodium chloride 0.9% 1,000 ML 125 ML IV ×2 (01:04→09:04)
[2020-07-07 02:46] LABS: Glucose Point of Care 98 mg/dL (70-110)
[2020-07-07 04:49] LABS: Glucose Point of Care 99 mg/dL (70-110)
--- NOTE | 2020-07-07 07:19 | PC.NURSE ---
Patient reports her 0700 blood sugar was 98 or so.
--- NOTE | 2020-07-07 08:26 | P.PCNOB_ITS ---
Delivery Note: Date of delivery: July 07, 2020 Pre-delivery diagnoses: Term . Gestational diabetes. macrosomia. Desire for permanent sterilization. Post-delivery diagnoses: Term delivered. Same as above Procedure: Spontaneous vaginal delivery Op report anesthesia: Epidural Delivering Physician: Elijah Lan MD Estimated blood loss (mL): 300 Findings: Male , Apgars 8/9, weight 3540 g, no lacerations. Pre-Delivery Course: Ms. Matthews is a 34 year old new patient with LMP of 08/17/2019, YINKA 07/26/2020 based on first trimester ultrasound , placing her at 37 2/7 weeks today.Has been receiving care from [facility]. complicated by gestational diabetes, microsomia. She was admitted for induction HPI: Received appropriate care. Daily vitamins since the start of care. labs have all been normal, including negative for HIV. She was found to negative for Group B Strep from screening at 36 weeks. She has gained approximately 8 lbs throughout the . She denies a history of HTN during . Glucose tolerance screening for gestational diabetes was abnormal. Diabetes has been comanaged with MFM. Delivery: The patient was noted to be complete and pushing, so was placed in the dorsal lithotomy position, prepped and draped in the usual sterile fashion for a vaginal delivery. Pt. Noted to have epidural anesthesia. At [time] the patient delivered a viable at 37+1 weeks male infant weighing 3540 g with scores of 8 and 9 at one and five minutes, respectively. The vertex was delivered spontaneously over an intact perineum. The patient was asked to push and the head delivered spontaneously in the SARAVANAN position, over an intact perineum. A nuchal cord was checked and 1 noted, and delivered through around head as necessary. The anterior shoulder delivered easily and the posterior shoulder followed. The remainder of the infant was easily delivered and the oropharynx and nasopharynx was bulb suctioned. The infant was noted to have spontaneous cry and spontaneous movement of all four extremities. The cord was clamped x 2 and cut and noted to have 2 arteries and one vein. The was passed to the mother's abdomen where nursing personnel were in attendance. Cord blood sample was then obtained. The placenta delivered intact spontaneously and the uterus was explored. 20 units of Pitocin was placed in the IV bag to firm the uterus. Examination of the cervix and vaginal vault did not reveal any lacerations. A vaginal pack was then placed. Examination of the perineum showed no lacerations. The vaginal pack was then removed. The patient tolerated this procedure well, and recovered in L&D with her infant in the OB [facility]. All sponge and needle counts were correct. The patient expressed again she wishes to proceed with permanent sterilization. Post-Delivery Status: Hemodynamically stable A&P Assessment and plan (1) macrosomia during in third trimester: Status: Acute Qualifiers: Fetus number: single or unspecified fetus Qualified Code(s): O36.63X0 - Maternal care for excessive growth, third trimester, not applicable or unspecified (2) Diabetes mellitus affecting in third trimester: Status: Acute (3) Hypothyroidism affecting in third trimester: Status: Acute (4) Tobacco smoking affecting : Status: Acute Qualifiers: Trimester: second trimester Qualified Code(s): O99.332 - Smoking (tobacco) complicating , second trimester Coding Level of Care Code Acute 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
[2020-07-07] MEDS: oxytocin 30 UNIT/500 ML BAG 600 UNIT IV (08:39)
--- NOTE | 2020-07-07 08:40 | PM.PN ---
Subjective Subjective: Interval history: Ms. Matthews is a 34 year old status post continuous vaginal delivery. Desires permanent sterilization. Vitals/I&O/Wt Last Vital Signs Temp 96.3 F L 07/07/20 07:17 Pulse 75 07/07/20 08:30 Resp 17 07/06/20 17:36 BP 151/78 07/07/20 08:30 Pulse Ox 99 07/06/20 15:01 07/06/20 07/07/20 07/07/20 22:59 06:59 14:59 Intake Total 218.700 / 2979.618 1111.30 / 4090.918 Output Total 200 / 200 600 / 800 Balance 18.700 / 2779.618 511.30 / 3290.918 Weight last 48 hrs Weight 173.726 kg Physical Exam Narrative: EXAM NARRATIVE: GA; alert and oriented x 3 HEENT: normal Breasts: engorged Nipples - skin intact Lungs; clear to auscultation Heart: regular rhythm, no murmurs. Abd: Appropriately tender. BS+. Uterine fundus below umbilicus. No Fundal Tenderness. Perineum: normal lochia. Extremities: no edema, no cyanosis, no tenderness. Urinary Catheter Management^: Darden: Cath Placed During This Visit: yes Reason for Continuing Indwelling Catheter: Required Immobilization for Trauma or Surgery or Anesthesia Urinary Catheter Date of Insertion: 07/06/20 Urinary Catheter Time of Insertion: 12:31 Data : 07/06/20 15:00 07/06/20 15:00 A&P Assessment and plan (1) Term delivered: Status post spontaneous vaginal delivery. Afebrile hemodynamically stable. Desires permanent sterilization Status: Acute (2) Request for sterilization: 34-year-old female G 5 P 5 status post spontaneous vaginal delivery desire permanent sterilization requesting tubal ligation. The patient was counseled regarding all methods of contraception, risk and complications. She elected to continue to proceed with the tubal ligation as planned. partial salpingectomy is associated with lower failure rates than interval tubal occlusions done via laparoscopy. She was counseled regarding the procedure, alternative, risks and complications. Complications of tubal sterilization include problems like but not limited to anesthesia, hemorrhage, organ damage, and mortality. Although pregnancies after a sterilization procedure are rare, there is substantial risk that any post-sterilization could be ectopic. The overall failure rate is on the order of 0.5% in the first year but a study showed that sterilization failures vary by both age at sterilization and the method used. The study also found that the risks of accumulate over time, and that for women aged 18 to 27 years, failure rates can be as high as 5% with bipolar coagulation and the spring clip. The patient was informed of the risks and benefits of the procedure. Risks included but were not limited to bleeding, infection, and injury to internal organs. The patient was counseled on the risk of sterilization failure. The patient was informed that in the event a occurs the risk of ectopic is increased. The patient was counseled that bilateral tubal ligation is intended to be permanent and nonreversible. She was also counseled that there are nonpermanent forms of control available to her. The patient expressed understanding of the risks involved, all questions were answered, and the patient consented to the procedure and had signed informed consent during care. Status: Acute Attestations Medical Necessity Statement*: In my professional opinion per admitting diagnosis Coding Level of Care Code Acute Operation Specialist for Raghavendra Fwd Diagnoses Term delivered O80 Request for sterilization Z30.2
--- NOTE | 2020-07-07 09:42 | PC.NURSE ---
Discussed with patient her glucose level, patient reported since her glucose was less than 120, she does not need her morning dose of insulin.
[2020-07-07 09:44] LABS: Glucose Point of Care 109 mg/dL (70-110)
--- NOTE | 2020-07-07 09:52 | PC.NURSE ---
Dr. Lan notified of fundus height. No new orders received.
--- NOTE | 2020-07-07 09:55 | PC.NURSE ---
Nurse at patient bedside adjusting blood pressure cuff. Cuff moved from patient's left lower arm to her left upper arm. Blood pressure unable to be acquired after blood pressure cuff pumping up three separate times. Blood pressure cuff removed at patient request after those attempts.
--- NOTE | 2020-07-07 10:10 | PC.NURSE ---
Patient being taken via gurney to OR for tubal ligation.
--- NOTE | 2020-07-07 10:20 | P.ANESUD_ITS ---
Pre-Anesthetic Update Pre-Anesthetic Assessment: Date of Surgery/Procedure: 07/07/20 Preop Irene gnosis: labor pains Proposed Procedure: Operation Date: 07/07/20 08:35 Proposed Procedures p Bilateral Tubal Ligation PPBTL(Not Applicable) - Elijah Lan MD Any changes to Pre-Anesthetic Assessment?: Yes Changes from Pre-Anesthetic Assessment: Patient is immediately Labs Last 48hrs: Laboratory Results - last 48 hr 07/05/20 07/05/20 07/05/20 14:24 15:51 17:01 WBC 8.2 RBC 4.01 L Hgb 11.5 Hct 35.1 L MCV 87.5 MCH 28.7 MCHC 32.8 RDW 13.3 Plt Count 278 MPV 12.1 H Neut % (Auto) 73.7 Lymph % (Auto) 20.0 [place] % (Auto) 4.4 Eos % (Auto) 1.3 Baso % (Auto) 0.4 Neut # (Auto) 6.02 Lymph # (Auto) 1.6 [place] # (Auto) 0.4 Eos # (Auto) 0.1 Baso # (Auto) 0.0 Nucleated RBC % (a uto) 0 Nucleated RBCs # 0.0 Sodium 136 Potassium 4.2 Chloride 102 Carbon Dioxide 20 L Anion Gap 18.2 BUN 6 Creatinine 0.4 L GFR Calculation 185.0 H Glucose 94 POC Glucose 102 Calculated Osmolal ity 279 L Uric Acid Calcium 9.2 Total Bilirubin 0.3 AST 21 ALT 17 Alkaline Phosphata se 144 H Total Protein 7.4 Albumin 3.5 Globulin 3.9 Urine Color Urine Appearance Urine pH Ur Specific Gravit y Urine Protein Urine Glucose (UA) Urine Ketones Urine Blood Urine Nitrate Urine Bilirubin Urine Urobilinogen Ur Leukocyte Patty ase Urine RBC Urine WBC Ur Squamous Epith Cells Amorphous Sediment Urine Bacteria Urine Mucus U Random Total Pro tein Urine Creatinine Protein/Creatinin Ratio 07/05/20 07/05/20 07/05/20 17:01 17:23 17:23 WBC RBC Hgb Hct MCV MCH MCHC RDW Plt Count MPV Neut % (Auto) Lymph % (Auto) [place] % (Auto) Eos % (Auto) Baso % (Auto) Neut # (Auto) Lymph # (Auto) [place] # (Auto) Eos # (Auto) Baso # (Auto) Nucleated RBC % (a uto) Nucleated RBCs # Sodium Potassium Chloride Carbon Dioxide Anion Gap BUN Creatinine GFR Calculation Glucose POC Glucose Calculated Osmolal ity Uric Acid 5.7 Calcium Total Bilirubin AST ALT Alkaline Phosphata se Total Protein Albumin Globulin Urine Color Yellow Urine Appearance Clear Urine pH 5 Ur Specific Gravit y 1.020 Urine Protein Neg Urine Glucose (UA) Norm Urine Ketones 1+ H Urine Blood 2+ H Urine Nitrate Negative Urine Bilirubin Neg Urine Urobilinogen 4 H Ur Leukocyte Patty ase Negative Urine RBC 5-10 H Urine WBC 5-10 H Ur Squamous Epith Cells 10-15 H Amorphous Sediment Not Reportable Urine Bacteria Trace Urine Mucus 1+ U Random Total Pro tein 48 Urine Creatinine 221 H Protein/Creatinin Ratio 0.22 07/06/20 07/06/20 07/06/20 15:00 15:00 15:05 WBC 9.2 RBC 4.05 L Hgb 11.7 Hct 36.0 L MCV 88.9 MCH 28.9 MCHC 32.5 RDW 13.5 Plt Count 241 MPV 12.2 H Neut % (Auto) 76.8 Lymph % (Auto) 17.2 [place] % (Auto) 4.7 Eos % (Auto) 0.8 Baso % (Auto) 0.2 Neut # (Auto) 7.03 Lymph # (Auto) 1.6 [place] # (Auto) 0.4 Eos # (Auto) 0.1 Baso # (Auto) 0.0 Nucleated RBC % (a uto) 0 Nucleated RBCs # 0.0 Sodium 134 L Potassium 4.0 Chloride 103 Carbon Dioxide 21 L Anion Gap 14.0 BUN 6 Creatinine 0.4 L GFR Calculation 185.0 H Glucose 82 POC Glucose Calculated Osmolal ity 275 L Uric Acid 6.5 H Calcium 9.1 Total Bilirubin 0.4 AST 23 ALT 16 Alkaline Phosphata se 138 H Total Protein 6.9 Albumin 3.1 L Globulin 3.8 Urine Color Urine Appearance Urine pH Ur Specific Gravit y Urine Protein Urine Glucose (UA) Urine Ketones Urine Blood Urine Nitrate Urine Bilirubin Urine Urobilinogen Ur Leukocyte Patty ase Urine RBC Urine WBC Ur Squamous Epith Cells Amorphous Sediment Urine Bacteria Urine Mucus U Random Total Pro tein 33 Urine Creatinine 141 Protein/Creatinin Ratio 0.23 07/07/20 07/07/20 07/07/20 00:35 02:42 04:46 WBC RBC Hgb Hct MCV MCH MCHC RDW Plt Count MPV Neut % (Auto) Lymph % (Auto) [place] % (Auto) Eos % (Auto) Baso % (Auto) Neut # (Auto) Lymph # (Auto) [place] # (Auto) Eos # (Auto) Baso # (Auto) Nucleated RBC % (a uto) Nucleated RBCs # Sodium Potassium Chloride Carbon Dioxide Anion Gap BUN Creatinine GFR Calculation Glucose POC Glucose 100 98 99 Calculated Osmolal ity Uric Acid Calcium Total Bilirubin AST ALT Alkaline Phosphata se Total Protein Albumin Globulin Urine Color Urine Appearance Urine pH Ur Specific Gravit y Urine Protein Urine Glucose (UA) Urine Ketones Urine Blood Urine Nitrate Urine Bilirubin Urine Urobilinogen Ur Leukocyte Patty ase Urine RBC Urine WBC Ur Squamous Epith Cells Amorphous Sediment Urine Bacteria Urine Mucus U Random Total Pro tein Urine Creatinine Protein/Creatinin Ratio 07/07/20 09:08 WBC RBC Hgb Hct MCV MCH MCHC RDW Plt Count MPV Neut % (Auto) Lymph % (Auto) [place] % (Auto) Eos % (Auto) Baso % (Auto) Neut # (Auto) Lymph # (Auto) [place] # (Auto) Eos # (Auto) Baso # (Auto) Nucleated RBC % (a uto) Nucleated RBCs # Sodium Potassium Chloride Carbon Dioxide Anion Gap BUN Creatinine GFR Calculation Glucose POC Glucose 109 Calculated Osmolal ity Uric Acid Calcium Total Bilirubin AST ALT Alkaline Phosphata se Total Protein Albumin Globulin Urine Color Urine Appearance Urine pH Ur Specific Gravit y Urine Protein Urine Glucose (UA) Urine Ketones Urine Blood Urine Nitrate Urine Bilirubin Urine Urobilinogen Ur Leukocyte Patty ase Urine RBC Urine WBC Ur Squamous Epith Cells Amorphous Sediment Urine Bacteria Urine Mucus U Random Total Pro tein Urine Creatinine Protein/Creatinin Ratio Vitals: Temperature 98.1 F 07/07/20 09:49 Temperature Source Tympanic 07/06/20 06:23 Pulse Rate 78 07/07/20 09:49 Pulse Rhythm 07/06/20 20:00 Pulse Strength 3+ Normal 07/06/20 20:00 Respiratory Rate 17 07/06/20 17:36 Respiratory Effort Non-Labored 07/05/20 14:25 Respiratory Depth Normal 07/05/20 14:25 Respiratory Patter n 07/05/20 14:25 Blood Pressure 174/80 07/07/20 09:49 Pulse Oximetry 99 07/06/20 15:01 Oxygen Delivery Me thod 07/07/20 06:22 Exam: Pre-Anes Outpt Exam: alert, oriented x 3, clear to auscultation bilaterally and regular rate & rhythm Other Pertinent Information: Other Pertinent Information: Patient NPO > 8 hrs Cardiac Studies: No Data to Display
[2020-07-07] MEDS: sodium chloride 0.9% 1,000 ML 30 ML IV (10:41)
--- NOTE | 2020-07-07 11:15 | SUR.PREOP ---
t 1040 pt A&O x4. no complaints at this time. Skin is pwd.
--- NOTE | 2020-07-07 11:44 | P.OP_ITS ---
Operative Report Date of procedure: July 07, 2020 Pre-op Diagnosis: Term delivered. Desires permanent sterilization Post-op diagnosis: same Post-op Findings: enlarged uterus Procedure Done: Bilateral tubal ligation via modified Ta Specimens removed/disposition: Left and right fallopian tubes Surgeon: Elijah Lan MD Anesthesia: General Estimated blood loss (mL): 5 IV fluids (mL): 100 Urine output (mL): 25 Complications: None Condition: stable Disposition: PACU Brief History: 34-year-old female G5, P5 status post spontaneous vaginal delivery desires permanent sterilization. Procedure: After assuring informed consent. The patient was informed of the risks and benefits of the procedure. Risks included but were not limited to bleeding, infection, and injury to internal organs. The patient was counseled on the risk of sterilization failure. The patient was informed that in the event a occurs the risk of ectopic is increased. The patient was counseled that bilateral tubal ligation is intended to be permanent and nonreversible. She was also counseled that there are nonpermanent forms of control available to her. The patient expressed understanding of the risks involved, all questions were answered, and the patient consented to the procedure. The patient was taken to the operating room and general anesthesia administered. Time-out procedure was performed. A small, transverse, infraumbilical skin incision was made with a scalpel, and the incision was carried down through the underlying fascia until the peritoneum was identified and entered. The left fallopian tube was identified, brought into the incision and grasped with a Michelle clamp. The tube was then followed out to the fimbria. An avascular midsection of the fallopian tube was grasped with a [place] clamp and brought into a knuckle. The tube was doubly ligated with an O-plain suture and transected. The specimen was sent to pathology. Excellent hemostasis was noted, and the tube was returned to the abdomen. The same procedure was performed on the opposite fallopian tube. The fascia was then closed with O- Vicryl in a single layer. The skin was closed with 3-O Monocryl in a subcuticular fashion. The patient tolerated the procedure well. Needle and sponge counts were correct times 3. Associated Problem List Diagnoses (1) Term delivered: (2) Request for sterilization: (3) Post-operative state:
[2020-07-07] MEDS: HYDROmorphone 1 mg/mL INJ 1 mL 0.5 MG IVP (12:01)
[2020-07-07] MEDS: ketorolac 30 mg/mL INJ IVP (12:58)
[2020-07-07] MEDS: labetalol 5 mg/mL SDV 20mL 20 MG IVP (13:22)
[2020-07-07 16:01] LABS: Glucose Point of Care 138 mg/dL (70-110)
[2020-07-07] MEDS: docusate sodium 100 mg Capsule PO (18:27)
[2020-07-07] MEDS: HYDROcodone-acetaminophen 5-325 mg Tablet PO (18:27)
[2020-07-07] MEDS: neomycin-poly-bacitracin oint 28 gm 1 APPLIC TOPICAL (19:24)
[2020-07-07 19:36] LABS: Glucose Point of Care 133 mg/dL (70-110)
[2020-07-07 20:30] LABS: Hematocrit 31.5 % (37.0-47.0); Hemoglobin 10.4 g/dL (11.5-15.3); Mean Corpuscular Hemoglobin 29.5 pg (28.0-34.0); Mean Corpuscular Volume 89.2 fL (81-99); Mean Platelet Volume 12.2 fL (7.4-10.4); Platelet Count 256 10^3/cmm (130-400); Red Blood Count 3.53 10^6/uL (4.1-5.3); Red Cell Distribution Width 13.7 % (12.1-15.1); White Blood Count 10.9 10^3/uL (4.0-10.0)
[2020-07-08] MEDS: HYDROcodone-acetaminophen 5-325 mg Tablet PO (00:09)
--- NOTE | 2020-07-08 04:25 | PM.OBGYDC ---
Discharge Providers MAINTENANCE TEAM MEMBER Date of Admission: 07/06/20 10:10 Date of Discharge: 07/08/20 Attending Provider at Admission: Elijah Lan MD Attending Provider at Discharge: Elijah Lan MD Diagnoses at Discharge Discharge Diagnosis (1) Term delivered: Status: Acute (2) Request for sterilization: Status: Acute (3) Post-operative state: Status: Acute Reason for Visit Reason for Visit: induction Hospital Course Hospital Course Ms. Matthews is a 34 year old new patient with LMP of 08/17/2019, YINKA 07/26/2020 based on first trimester ultrasound , placing her at 37 2/7 weeks today.[place] [facility]. complicated by gestational diabetes, microsomia. She was admitted for induction HPI: Received appropriate care. Daily vitamins since the start of care. labs have all been normal, including negative for HIV. She was found to negative for Group B Strep from screening at 36 weeks. She has gained approximately 8 lbs throughout the . She denies a history of HTN during . Glucose tolerance screening for gestational diabetes was abnormal. Diabetes has been comanaged with MFM. Induction was initiated with misoprostol for cervical ripening. Follow with oxytocin. She progressed to have a spontaneous vaginal delivery without complications. She delivered an infant boy Apgars 8/9 with a weight of 3540 g. She had signed a consent for bilateral tubal ligation. The procedure was performed without complication. During postop observation she had a one-time elevated blood pressure treated with labetalol x1. She is afebrile hemodynamically stable. Tolerating diet well. Ambulating without difficulty. Information Peripartum Data: Delivery Method: Vaginal Physical Exam Narrative: EXAM NARRATIVE: GA; alert and oriented x 3 HEENT: normal Breasts: engorged Nipples - skin intact Lungs; clear to auscultation Heart: regular rhythm, no murmurs. Abd: Appropriately tender. BS+. Uterine fundus below umbilicus. No Fundal Tenderness. Perineum: normal lochia. Extremities: no edema, no cyanosis, no tenderness. Urinary Catheter Management^: Darden: Cath Placed During This Visit: yes, but has since been removed by the nurse Reason for Continuing Indwelling Catheter: Required Immobilization for Trauma or Surgery or Anesthesia Urinary Catheter Date of Insertion: 07/07/20 Urinary Catheter Time of Insertion: 11:00 Date Urinary Catheter Removed: 07/07/20 Time Urinary Catheter Discontinued: 08:00 Discharge Data Data Completed and Pending: Completed Studies During Hospitalization Category Date Time Status US OB BPP w o NST 26972 Stat Ultrasound 07/05/20 14:09 Completed Pending at discharge Category Date Time Status Pathology: Surgic al [PTH] Routine Pth 07/07/20 11:31 Ordered Labs from last 24 hours 07/07/20 07/07/20 07/07/20 20:13 19:28 15:58 WBC 10.9 H RBC 3.53 L Hgb 10.4 L Hct 31.5 L MCV 89.2 MCH 29.5 MCHC 33.0 RDW 13.7 Plt Count 256 MPV 12.2 H POC Glucose 133 H 138 H 07/07/20 07/07/20 09:08 04:46 WBC RBC Hgb Hct MCV MCH MCHC RDW Plt Count MPV POC Glucose 109 99 Vitals: Last Vital Signs Temp 97.3 F L 07/07/20 21:59 Pulse 67 07/07/20 22:00 Resp 18 07/07/20 16:20 BP 156/84 07/07/20 22:00 Pulse Ox 97 07/07/20 16:20 Discharge Plan Discharge Patient Disposition: Home Condition: Stable Prescriptions: New acetaminophen 325 mg capsule 325 mg PO Q4H PRN (Reason: fever or pain) Qty: 60 RF: 0 ferrous sulfate 325 mg (65 mg iron) tablet 325 mg PO BID Qty: 60 RF: 0 ibuprofen 800 mg tablet 800 mg PO TID PRN (Reason: pain) Qty: 60 RF: 0 Continued Lantus Solostar U-100 Insulin 100 unit/mL (3 mL) insulin pen 65 unit SUBCUT BEDTIME RF: 0 One Daily Womens 50 Plus 0.4 mg tablet 1 mg PO DAILY RF: 0 levothyroxine 100 mcg tablet 100 mcg PO DAILY Qty: 30 RF: 0 acetaminophen [Tylenol] 325 mg Tablet 650 mg PO PRN RF: 0 insulin glargine 100 unit/mL (3 mL) Insulin Pen 20 unit SUBCUT QAM RF: 0 Discharge Orders: Discharge Order (Routine); Ordered 07/08/20 Ordered By: Elijah Lan Referrals: Elijah Lan MD [Physician] - 2 weeks Discharge Diet: Usual diet Discharge Activity: Increase activity as tolerated Patient Instructions: Gestational Diabetes (DC), Your Baby (DC), How to Hold and Breastfeed Your Baby (DC), and Nipple Soreness (DC), and Your Diet (DC), OB Vaginal Deliveries - [facility], Minilaparotomy Tubal Ligation (DC) Activity Restrictions/Additional Instructions: 1. Please call [facility] on next working day to make your post-operative appointment in 2 weeks to check incision, BP and glucose levels. 2. Please stay home until you come back to the clinic on first post-operative check up. 3. Please follow instructions on your medications CAREFULLY. 4. If you have abdominal incision, do not cover it unless dressing is necessary because of drainage. OK to shower, but avoid bath. Leave steri-strips until they fall off. If they are still on one week after surgery, you may remove them. 5. If you had vaginal surgery, your doctor may instruct you to take SITZ bath. 6. Yellow, blood tinged odorous vaginal discharge is usually normal after hysterectomy or vaginal surgeries. 7. No sexual intercourse, tampons, or douches until you are completely released from the post-operative care. 8. Avoid constipation by eating right and maybe using some Metamucil or Milk of Magnesia. 9. All prescription refills are given during the working hours. Please do no wait till it runs out. Call the clinic at [phone] before your medication runs out. The clinic will get in touch with your doctor to prescribe medications if necessary. 10. Please remain within 40 mile radius from our hospital because emergencies do happen now and then during the post-operative period. 11. If you have stairs at home, take one step at a time slowly and minimize the number of trips. It helps to stay in one floor for the next few days. No lifting except what you can lift by one hand until you are released from the post-operative care. 12. Driving is discouraged until you are well healed. It may be 3-4 weeks before you feel strong enough to drive. You should be able to turn and look through the rear window without pain and you should be able to push the brake pedal very hard without pain before you drive. No fast rules, but SAFETY should be your primary concern. DO NOT drive if you are on sedating medications such as narcotics. 13. Call the clinic (during working hours) to make urgent appointment or go to the Emergency room, if any of the following occurs: i. Vaginal bleeding becomes heavy, more than a period. ii. Incision becomes red and sore, or drains pus. iii. Your temperature is over 100.4 or you have chill. iv. IV site becomes red and swollen (a little ``knot?? is usually OK) v. Persistent nausea and vomiting vi. Persistent constipation or diarrhea vii. Rash or allergic reaction to medications. Discharge Attestations MAINTENANCE TEAM MEMBER Time Spent in Discharge Care*: greater than 30 min Coding Level of Care Code Acute Scrap Drop Crane Operator for Chg Fwd Diagnoses Term delivered O80 Request for sterilization Z30.2 Post-operative state Z98.890
[2020-07-08 04:40] VITALS: BP 195/110; PULSE 88; TEMP 36.2
[2020-07-08 04:42] VITALS: BP 179/86; PULSE 68
[2020-07-08 05:05] VITALS: BP 150/81; PULSE 67
[2020-07-08 05:45] VITALS: BP 150/81; PULSE 67; RESP 16; TEMP 36.8
--- NOTE | 2020-07-08 09:41 | ANE.PACU2 ---
Inpatient post-anesthesia follow up: Airway intact: Yes Vital signs: Temperature 98.2 F Pulse Rate 67 Respiratory Rate 16 Blood Pressure 150/81 Pulse Oximetry 97 Oxygen Delivery Me thod Room Air Oxygen Flow Rate 2 Fraction of Inspir ed Oxygen Hydration adequate: Yes Nausea and vomiting: No Pain level: 2 Mental status: Baseline Additional Comments: NO signs of infection at epidural site
== END 2020-07-08 05:57 | disposition home or self-care (01) | DRG 798 ==
PROVIDERS: Obstetrics & Gynecology; Admitting Provider Obstetrics & Gynecology; Visit Provider Obstetrics & Gynecology
PROC: 10E0XZZ Delivery of Products of Conception, External Approach (ICD-10-PCS; CPT 58605; principal; 2020-07-07 08:35)
DX: O69.2XX0 Labor and delivery complicated by other cord entanglement, with compression, not applicable or unspecified (principal); Z37.0 Single live birth; O36.63X0 Maternal care for excessive fetal growth, third trimester, not applicable or unspecified; O99.284 Endocrine, nutritional and metabolic diseases complicating childbirth; E03.9 Hypothyroidism, unspecified; O99.334 Smoking (tobacco) complicating childbirth; F17.210 Nicotine dependence, cigarettes, uncomplicated; O24.424 Gestational diabetes mellitus in childbirth, insulin controlled; Z3A.37 37 weeks gestation of pregnancy; Z30.2 Encounter for sterilization
CPT/HCPCS: 12345; 36415; 36416; 51702; 59025; 59409; 76819; 80053; 81001; 82570; 82962; 84156; 84550; 85025; 85027; 88302; 96372; G0378; G0379; J0330; J1170; J1885; J2405; J2704; J2710; J2795; J3010; J3490; J7030

== ENCOUNTER → 2021-06-13 10:10 | Outpatient (BNVA) | payer BC, MEDICAID, SELFPAY | PROVIDERS: Visit Provider Nurse Practitioner Family | DX: Z20.822 Contact with and (suspected) exposure to COVID-19 (principal) | CPT/HCPCS: 87635 ==

== ENCOUNTER → 2021-08-13 16:27 | Outpatient (BNVA) | payer BC, MEDICAID, SELFPAY | PROVIDERS: Visit Provider Nurse Practitioner Family | DX: O24.419 Gestational diabetes mellitus in pregnancy, unspecified control; Z3A.00 Weeks of gestation of pregnancy not specified | CPT/HCPCS: 80053; 80061; 83036; 84443 ==

== ENCOUNTER → 2021-08-23 13:37 | Outpatient (BNVA) | payer BC, MEDICAID, SELFPAY | PROVIDERS: Visit Provider Nurse Practitioner | DX: N39.0 Urinary tract infection, site not specified (principal) | CPT/HCPCS: 81000 ==

== ENCOUNTER → 2021-11-14 15:06 | Outpatient (BNVA) | payer BC, MEDICAID, SELFPAY | PROVIDERS: Visit Provider Nurse Practitioner Family | DX: E06.3 Autoimmune thyroiditis (principal); R73.9 Hyperglycemia, unspecified; R73.03 Prediabetes | CPT/HCPCS: 83036; 84443 ==

== ENCOUNTER → 2021-12-09 10:45 | Outpatient (BNVA) | payer BC, MEDICAID, SELFPAY | PROVIDERS: PCP Nurse Practitioner Family; Visit Provider Registered Nurse Neonatal Intensive Care | DX: Z20.822 Contact with and (suspected) exposure to COVID-19 (principal) | CPT/HCPCS: 87635 ==